=== PATIENT | female | born 1970 | race Caucasian/White ===

== ENCOUNTER 2019-12-14 17:01 | Emergency (ER) | payer OTHER ==
[~2019-12-14] VITALS: Ht 154.9 cm; Wt 117.9 kg
[~2019-12-14 17:01] MED LIST: CIPRO500 MG PO; FLAGYL500 MG PO; NORCO 5-325 TA1 EACH PO; NOVAPLUS V0.09 MG/Ac IH; SYMBICORT1 AE1 INH
[2019-12-14] MEDS ORDERED: CYCLOBENZAPRINE5 M3 PO (20:02)
[2019-12-14] MEDS ORDERED: IBU800 MG PO (20:02)
== END 2019-12-14 20:26 | disposition home or self-care (01) ==
LOC: ED 17:01
DX: S89.92XA Unspecified injury of left lower leg, initial encounter (principal); Z79.899 Other long term (current) drug therapy; X50.1XXA Overexertion from prolonged static or awkward postures, initial encounter; Y93.89 Activity, other specified; Y92.89 Other specified places as the place of occurrence of the external cause; Y99.8 Other external cause status

== ENCOUNTER → 2020-07-29 | Outpatient (CLI) | payer BC ==
[~2020-07-29] MED LIST changes: +CYCLOBENZAPRINE5 M3 PO; +IBU800 MG PO
== END | disposition home or self-care (01) ==
LOC: LAB 07-28 08:52
PROVIDERS: ATTEND Registered Nurse
DX: A08.8 Other specified intestinal infections (principal)

== ENCOUNTER → 2020-10-26 | Outpatient (CLI) | payer BC ==
[2020-10-26 12:08] LABS: ALBUMIN 2.8 gm/dl (3.1-4.5); ALKALINE PHOSPHATASE 108 U/L (45-117); BUN 13 mg/dl (7-24); CHLORIDE 104 mmol/L (98-107); CREATININE 0.75 mg/dL (0.55-1.02); POTASSIUM 3.7 mmol/L (3.5-5.1); SGOT/AST 20 IU/L (3-35); SGPT/ALT 24 U/L (12-78); SODIUM 138 mmol/L (136-145); TOTAL PROTEIN 6.5 gm/dL (6.4-8.2)
== END | disposition home or self-care (01) ==
LOC: LAB 09:57
PROVIDERS: ATTEND Nurse Practitioner Family
DX: E87.6 Hypokalemia (principal)

== ENCOUNTER 2024-01-20 21:17 | Emergency (ER) | payer BC ==
[~2024-01-20] VITALS: Ht 157.4 cm; Wt 101.2 kg
[2024-01-20] MEDS ORDERED: Ondansetron Hydrochloride 4 MG/2 ML VIAL IV ONE (21:45)
[2024-01-20] MEDS ORDERED: FAMOTIDINE 50 ML IV ONE (21:45)
[2024-01-20] MEDS ORDERED: SODIUM CHLORIDE 0.9% 1,000 ML IV ONE (21:45)
[2024-01-20 21:56] LABS: BASO % 0.4 % (0.0-1.0); EOS % 0.5 % (1.0-4.0); HEMATOCRIT 41.7 % (37.0-47.0); LYMPH # 1.1 10*3/uL (1.3-4.4); LYMPH % 14.6 % (27.0-41.0); MEAN CELL VOLUME 82.1 fl (81.0-99.0); MEAN CORPUSCULAR HGB 26.2 pg (27.0-31.0); MEAN CORPUSCULAR HGB CONC 31.9 g/dl (33.0-37.0); MEAN PLATELET VOLUME 8.7 fl (9.6-12.3); MONO # 0.4 10*3/uL (0.1-1.0); MONO % 5.6 % (3.0-9.0); NEUT # 5.8 10*3/uL (2.3-7.9); NEUT % 78.6 % (47.0-73.0); PLATELET COUNT AUTOMATED 249 10*3/uL (130-400); RED BLOOD COUNT 5.08 10*6/uL (4.10-5.10); RED CELL DISTRI WIDTH 19.7 % (0-14.5); WHITE BLOOD COUNT 7.3 10*3/uL (4.8-10.8)
[2024-01-20 22:12] LABS: POTASSIUM 4.1 mmol/L (3.4-5.1)
[2024-01-21] MEDS ORDERED: Ondansetron4 MG SL (00:52)
== END 2024-01-21 01:02 | disposition home or self-care (01) ==
LOC: ED 21:17
PROVIDERS: Internal Medicine
DX: A08.4 Viral intestinal infection, unspecified (principal); R11.2 Nausea with vomiting, unspecified; Z90.49 Acquired absence of other specified parts of digestive tract

== ENCOUNTER 2024-11-13 20:43 | Emergency (ER) | payer BC ==
[~2024-11-13] VITALS: Ht 157.4 cm; Wt 74.8 kg
[~2024-11-13 20:43] MED LIST changes: +Ondansetron4 MG SL
[2024-11-13] MEDS ORDERED: SODIUM CHLORIDE 0.9% 1,000 ML IV ONE (20:50)
[2024-11-13 21:15] LABS: HEMATOCRIT 37.2 % (37.0-47.0); MANUAL DIFF REFLEX YES; MEAN CELL VOLUME 92.8 fl (81.0-99.0); MEAN CORPUSCULAR HGB 31.2 pg (27.0-31.0); MEAN CORPUSCULAR HGB CONC 33.6 g/dl (33.0-37.0); MEAN PLATELET VOLUME 8.5 fl (9.6-12.3); PLATELET COUNT AUTOMATED 338 10*3/uL (130-400); RED BLOOD COUNT 4.01 10*6/uL (4.10-5.10); RED CELL DISTRI WIDTH 15.7 % (0-14.5); WHITE BLOOD COUNT 14.4 10*3/uL (4.8-10.8)
[2024-11-13 21:34] LABS: POTASSIUM 3.6 mmol/L (3.4-5.1)
[2024-11-13] MEDS ORDERED: Ondansetron Hydrochloride 4 MG/2 ML VIAL IV ONE (21:50)
[2024-11-13 21:51] LABS: PLATELET SUFFICIENCY NORMAL (NORMAL); TOTAL CELLS COUNTED 100 #CELLS
[2024-11-13] MEDS ORDERED: MAGNESIUM SULFATE 50 ML IV ONE (22:05)
[2024-11-13] MEDS ORDERED: HYDROmorphONE Hydrochloride 0.5 MG/0.5 ML SYRINGE IV ONE (23:50)
== END 2024-11-14 03:34 | disposition home or self-care (01) ==
LOC: ED 20:43
PROVIDERS: Internal Medicine
DX: C56.9 Malignant neoplasm of unspecified ovary (principal); N17.9 Acute kidney failure, unspecified; E87.8 Other disorders of electrolyte and fluid balance, not elsewhere classified; I95.9 Hypotension, unspecified; D72.89 Other specified disorders of white blood cells; R55 Syncope and collapse; Z79.899 Other long term (current) drug therapy; Z90.49 Acquired absence of other specified parts of digestive tract; Z87.891 Personal history of nicotine dependence